=== PATIENT | male | born 1985 | race Caucasian/White ===

== ENCOUNTER 2016-12-05 23:20 | Emergency (ER) | payer OTHER ==
--- NOTE | 2016-12-05 23:23 | PDOC ---
History of Present Illness - General Chief Complaint: Pain, Acute Stated Complaint: SWELLING PAIN TO LEFT FOOT Time Seen by Provider: 12/05/16 23:22 History Source: Patient Exam Limitations: No Limitations - History of Present Illness Initial Comments: 12/05/16 23:39 This is a 31-year-old male who comes in complaining of some pain and swelling to the base of the second third and fourth toes of his left foot. Patient said that the symptoms began 2 days ago at the base of the second toe and then spread to this third and fourth toe. Patient denies any fevers or chills. Patient said he took some Motrin with improvement of the symptoms. Patient said they toes are not painful unless he tries to walk on them. Patient denies any trauma to the area. Patient says he has not had similar symptoms in the past. Patient denies any fevers or chills. PAST MEDICAL HISTORY: no significant history PAST SURGICAL HISTORY: no significant history FAMILY HISTORY: no pertinant history SOCIAL HISTORY: Pt lives with family and is employed. MEDICATIONS: reviewed ALLERGIES: As per nursing notes Review of Systems General: No fevers or chills, no weakness, no weight loss HEENT: No change in vision. No sore throat,. No ear pain CardioVascular: No chest pain or shortness of breath Respiratory:No cough, or wheezing. Gastrointestinal: no nausea, vomitting, diarrhea or constipation, No rectal bleeding Genitourinary: No dysuria, hematuria, or frequency Musculoskeletal: Pain and swelling at the base of the second third and fourth toes of the left foot Neurologic: No headache, vertigo, dizziness or loss of consciousness Psychiatric: nor depression Skin: No rashes or easy bruising Endocrine: no increased thirst or abnormal weight change Allergic: no skin or latex allergy All other systems reviewed and normal GENERAL: The patient is awake, alert, and fully oriented, in no acute distress. HEAD: Normal with no signs of trauma. EYES: Pupils equal, round and reactive to light, extraocular movements intact, sclera anicteric, conjunctiva clear. EXTREMITIES: There is some mild swelling to the second third and fourth toes proximal phalanx with minimal increase in erythema and no increase in warmth. There is some mild discomfort on palpation. Neurovascular is intact. NEUROLOGICAL: Normal speech, normal gait. PSYCH: Normal mood, normal affect. SKIN: Warm, Dry, normal turgor, no rashes or lesions noted. 12/06/16 00:17 Assessment and plan: This is a 31-year-old male comes in complaining of pain in the base of his second third and fourth toes. Patient was given Indocin for presumptive gout as his uric acid level was moderately elevated. Patient was given orthopedic follow-up and discharged home with prescription for additional Indocin. Past History - Past Medical History Allergies/Adverse Reactions: Allergies Allergy/AdvReac Type Severity Reaction Status Date / Time No Known Allergies Allergy Verified 12/05/16 23:29 Home Medications: Ambulatory Orders Bupropion HCl [Wellbutrin] 400 mg PO ONCE 05/08/12 Clonazepam [Klonopin] 3 mg PO ONCE 05/08/12 Escitalopram Oxalate [Lexapro] 60 mg PO DAILY 05/08/12 Propranolol HCl 100 mg PO DAILY 05/08/12 Quetiapine Fumarate [Seroquel] 125 mg PO HS 05/08/12 Acetaminophen W/ Codeine #3 [Tylenol # 3 -] 1 tab PO Q6H PRN #10 tablet Naproxen [Naprosyn -] 500 mg PO BID PRN #14 tablet 03/14/15 Indomethacin [Indocin -] 50 mg PO TID #21 capsule 12/06/16 - Surgical History Abdominal Surgery: Yes - Immunization History Immunization Up to Date: Yes - Suicide/Smoking/Psychosocial Hx Smoking Status: No Smoking History: Never smoked Number of Cigarettes Smoked Daily: 0 Hx Alcohol Use: No Drug/Substance Use Hx: No Substance Use Type: None ED Treatment Course - LABORATORY CBC & Chemistry Diagram: 12/05/16 23:40 *DC/Admit/Observation/Transfer Diagnosis at time of Disposition: Gout attack Qualifiers: Gout site: toe Gout etiology: unspecified cause Laterality: left Qualified Code (s): M10.9 - Gout, unspecified - Discharge Dispostion Disposition: HOME Condition at time of disposition: Stable Admit: No - Prescriptions Prescriptions: Indomethacin [Indocin -] 50 mg PO TID #21 capsule - Patient Instructions Printed Discharge Instructions: DI for Gout Additional Instructions: Take indomethacin one tablet 3 times a day for the next week. Follow-up with an orthopedist if you need an orthopedist call Dr. Aguila at [phone] for an appointment. Return to the emergency department immediately with ANY new, persistent or worsening symptoms. Continue any medications as previously prescribed by your physician. You should follow up with an orthopedic doctor as soon as possible regarding today's emergency department visit. . Please make sure your doctor reviews the results of your emergency evaluation. Thank you for coming to the Emergency Department today for your care. It was a pleasure to see you today. Please note that your evaluation is INCOMPLETE until you follow-up with your doctor.
[2016-12-05 23:34] VITALS: BP 120/83; PULSE 86; TEMP 98.5; BMI 37.6
[2016-12-05 23:48] LABS: BASOPHIL 1.1 % (0-2.0); EOSINOPHIL 7.4 % (0-4.5); MCH 29.4 pg (25.7-33.7); MCHC 34.3 g/dl (32.0-35.9); MEAN CELL VOLUME 85.7 fl (80-96); MEAN PLT VOLUME 10.2 fl (7.5-11.1); NEUTROPHILS 63.4 % (42.8-82.8); PLATELET COUNT 171 K/MM3 (134-434); WHITE BLOOD COUNT 9.3 K/mm3 (4.0-10.8)
[2016-12-06] MEDS ORDERED: INDOMETHACIN 50 MG CAPSULE PO STA (00:09)
[2016-12-06] MEDS ORDERED: INDOMETHACIN 25 MG CAPSULE ONE (00:12)
== END 2016-12-06 00:19 | disposition home or self-care (01) ==
LOC: FER 23:20
DX: M10.9 Gout, unspecified (principal)
CPT/HCPCS: 36415; 84550; 85025; 99281-25

== ENCOUNTER 2017-02-25 13:35 | Emergency (ER) | payer OTHER ==
[2017-02-25 14:04] VITALS: BP 134/87; PULSE 78; TEMP 97; BMI 37.6
[2017-02-25] MEDS ORDERED: METHOCARBAMOL 500 MG TABLET PO ONE (14:04)
--- NOTE | 2017-02-25 14:04 | PDOC ---
History of Present Illness <Tania Miner - Last Filed: 02/25/17 14:02> - General History Source: Patient Exam Limitations: No Limitations - History of Present Illness Initial Comments: 02/25/17 14:06 The patient is a 32 year old male, with no significant past medical history who presents to the emergency department with neck pain for about 2 days. The patient reports injuring his neck about 2 days ago while having intercourse, he reports re-injuring his neck in a similar way yesterday. He notes since the injury having pain with any movement of his neck, and reports having a decrease in the ROM of his neck. He also reports having a headache associated with his neck pain. He reports taking motrin with no significant alleviation of his pain. He denies any recent fevers, chills, headache or dizziness. He denies any recent nausea, vomit, diarrhea or constipation. Allergies: NKA Past surgical history: None reported. Social History: Nonsmoker. Denies EtOH use and recreational drug use. <Bassam Covington - Last Filed: 02/25/17 21:00> - General Chief Complaint: Pain Stated Complaint: NECK PAIN 2 DAYS Time Seen by Provider: 02/25/17 13:51 Past History - Surgical History Abdominal Surgery: Yes - Immunization History Immunization Up to Date: Yes - Suicide/Smoking/Psychosocial Hx Smoking Status: No Smoking History: Never smoked Have you smoked in the past 12 months: No Number of Cigarettes Smoked Daily: 0 Hx Alcohol Use: No Drug/Substance Use Hx: No Substance Use Type: None <Tania Miner - Last Filed: 02/25/17 14:02> <Bassam Covington - Last Filed: 02/25/17 21:00> - Past Medical History Allergies/Adverse Reactions: Allergies Allergy/AdvReac Type Severity Reaction Status Date / Time No Known Allergies Allergy Verified 02/25/17 13:38 Home Medications: Ambulatory Orders Clonazepam [Klonopin] 3 mg PO ONCE 05/08/12 Escitalopram Oxalate [Lexapro] 60 mg PO DAILY 05/08/12 Indomethacin [Indocin -] 50 mg PO TID #21 capsule 12/06/16 Ibuprofen [Motrin -] 600 mg PO TID PRN #21 tablet 02/25/17 Methocarbamol [Robaxin -] 500 mg PO BID PRN #14 tablet 02/25/17 Review of Systems - Review of Systems Able to Perform ROS?: Yes Comments:: 02/25/17 14:06 GENERAL/CONSTITUTIONAL: No fever or chills. No weakness. HEAD, EYES, EARS, NOSE AND THROAT: No change in vision. No ear pain or discharge. No sore throat. CARDIOVASCULAR: No chest pain or shortness of breath. RESPIRATORY: No cough, wheezing, or hemoptysis. GASTROINTESTINAL: No nausea, vomiting, diarrhea or constipation. GENITOURINARY: No dysuria, frequency, or change in urination. MUSCULOSKELETAL: No joint or muscle swelling or pain. +neck pain No back pain. SKIN: No rash NEUROLOGIC: +headache No vertigo, loss of consciousness, or change in strength/ sensation. ENDOCRINE: No increased thirst. No abnormal weight change. HEMATOLOGIC/LYMPHATIC: No anemia, easy bleeding, or history of blood clots. ALLERGIC/IMMUNOLOGIC: No hives or skin allergy. <Bassam Covington - Last Filed: 02/25/17 21:00> *Physical Exam - Physical Exam Comments: GENERAL: Awake, alert, and fully oriented, in no acute distress HEAD: No signs of trauma EYES: PERRLA, EOMI, sclera anicteric, conjunctiva clear ENT: Auricles normal inspection, hearing grossly normal, nares patent, oropharynx clear without exudates. Moist mucosa NECK: +R trapezius spasm with dec ROM to R neck. Supple, no lymphadenopathy, JVD , or masses LUNGS: Breath sounds equal, clear to auscultation bilaterally. No wheezes, and no crackles HEART: Regular rate and rhythm, normal S1 and S2, no murmurs, rubs or gallops ABDOMEN: Soft, nontender, normoactive bowel sounds. No guarding, no rebound. No masses EXTREMITIES: Normal range of motion, no edema. No clubbing or cyanosis. No cords, erythema, or tenderness NEUROLOGICAL: Cranial nerves II through XII grossly intact. Normal speech, normal gait SKIN: Warm, Dry, normal turgor, no rashes or lesions noted. <Tania Miner - Last Filed: 02/25/17 14:02> - Vital Signs Last Vital Signs Temp Pulse Resp BP Pulse Ox 97 F L 78 20 134/87 97 02/25/17 13:36 02/25/17 13:36 02/25/17 13:36 02/25/17 13:36 02/25/17 13:36 <Bassam Covington - Last Filed: 02/25/17 21:00> *DC/Admit/Observation/Transfer - Discharge Dispostion Admit: No <Tania Miner - Last Filed: 02/25/17 14:02> - Attestations Scribe Attestion: 02/25/17 14:07 Documentation prepared by Bassam Covington, acting as medical physicist for Tania Miner MD. <Bassam Covington - Last Filed: 02/25/17 21:00> Diagnosis at time of Disposition: Trapezius muscle spasm - Discharge Dispostion Disposition: HOME Condition at time of disposition: Stable - Prescriptions Prescriptions: Ibuprofen [Motrin -] 600 mg PO TID PRN #21 tablet PRN Reason: Pain Methocarbamol [Robaxin -] 500 mg PO BID PRN #14 tablet PRN Reason: Muscle Spasms - Patient Instructions Printed Discharge Instructions: DI for Cervical Muscle Strain
[2017-02-25] MEDS ORDERED: METHOCARBAMOL 500 MG TABLET ONE (14:09)
== END 2017-02-25 14:13 | disposition home or self-care (01) ==
LOC: FER 13:35
DX: M62.838 Other muscle spasm (principal)
CPT/HCPCS: 99281-25

== ENCOUNTER 2017-04-28 12:23 | Emergency (ER) | payer OTHER ==
[2017-04-28 12:46] VITALS: BP 128/82; PULSE 83; TEMP 98.7; BMI 37.6
--- NOTE | 2017-04-28 13:23 | PDOC ---
History of Present Illness - General Chief Complaint: Sore Throat Stated Complaint: SORE THROAT Time Seen by Provider: 04/28/17 13:23 - History of Present Illness Initial Comments: 04/28/17 13:48 32-year-old male with a history of OCD and restless leg syndrome presents the emergency department with 2 days of sore throat. The patient reports 5 days ago that he had cough, nasal congestion, and body aches which improved and he felt better 3 later.Two days ago, developed a sore throat that was worse this morning and he was concerned that he had strep throat. 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 Denies any fevers, chills. Reports a mild cough. Took ibuprofen for pain last night which helps. Denies any headache, chest pain , shortness of breath, difficulty swallowing, abdominal pain, rashes, stiff neck , lower extremity edema. Past History - Past Medical History Allergies/Adverse Reactions: Allergies Allergy/AdvReac Type Severity Reaction Status Date / Time No Known Allergies Allergy Verified 04/28/17 12:33 Home Medications: Ambulatory Orders Escitalopram Oxalate [Lexapro] 60 mg PO DAILY 05/08/12 clonazePAM [Klonopin] 4 mg PO HS 05/08/12 Gabapentin [Neurontin -] 200 mg PO HS 04/28/17 COPD: No Psychiatric Problems: Yes (OCD) - Surgical History Abdominal Surgery: Yes - Immunization History Immunization Up to Date: Yes - Suicide/Smoking/Psychosocial Hx Smoking Status: No Smoking History: Never smoked Have you smoked in the past 12 months: No Number of Cigarettes Smoked Daily: 0 Information on smoking cessation initiated: No Hx Alcohol Use: No Drug/Substance Use Hx: No Substance Use Type: None Review of Systems - Review of Systems Comments:: 04/28/17 13:50 GENERAL/CONSTITUTIONAL: No fever or chills. No weakness. HEAD, EYES, EARS, NOSE AND THROAT: No change in vision. No ear pain or discharge. +sore throat. GASTROINTESTINAL: No nausea, vomiting, diarrhea or constipation. GENITOURINARY: No dysuria, frequency, or change in urination. CARDIOVASCULAR: No chest pain or shortness of breath. RESPIRATORY: +cough, no wheezing, or hemoptysis. MUSCULOSKELETAL: No joint or muscle swelling or pain. No neck or back pain. SKIN: No rash NEUROLOGIC: No headache, vertigo, loss of consciousness, or change in strength/ sensation. ENDOCRINE: No increased thirst. No abnormal weight change. HEMATOLOGIC/LYMPHATIC: No anemia, easy bleeding, or history of blood clots. ALLERGIC/IMMUNOLOGIC: No hives or skin allergy. *Physical Exam - Vital Signs Last Vital Signs Temp Pulse Resp BP Pulse Ox 98.7 F 83 20 128/82 95 04/28/17 12:25 04/28/17 12:25 04/28/17 12:25 04/28/17 12:25 04/28/17 12:25 - Physical Exam Comments: 04/28/17 13:51 GENERAL: Awake, alert, and fully oriented, in no acute distress HEAD: No signs of trauma EYES: PERRLA, EOMI, sclera anicteric, conjunctiva clear ENT: Auricles normal inspection, hearing grossly normal, nares patent, mild oropharyngeal erythema but no exudates/petechie. Moist mucosa NECK: Normal ROM, supple, no lymphadenopathy, JVD, or masses LUNGS: Breath sounds equal, clear to auscultation bilaterally. No wheezes, and no crackles HEART: Regular rate and rhythm, normal S1 and S2, no murmurs, rubs or gallops ABDOMEN: Soft, nontender, normoactive bowel sounds. No guarding, no rebound. No masses EXTREMITIES: Normal range of motion, no edema. No clubbing or cyanosis. No cords, erythema, or tenderness NEUROLOGICAL: Normal speech, cranial nerves intact, negative pronator drift, 5/ 5 strength in all 4 extremities, normal sensation to light touch in all 4 extremities, normal cerebellar exam, normal gait, normal reflexes and tone SKIN: Warm, Dry, normal turgor, no rashes or lesions noted. Medical Decision Making - Medical Decision Making 04/28/17 13:12 32-year-old male presents with 2 days of sore throat and cough. Vitals within normal limits. Exam with oropharyngeal erythema. Since patient is coughing and has no fever, unlikely strep. We will do a rapid strep test, if negative likely has a viral syndrome. Pt given motrin for pain. Will reassess 04/28/17 14:46 Rapid strep negative, likely viral pharyngitis. Pt feels better with motrin, requests DC. I discussed the physical exam findings, ancillary test results and final diagnoses with the patient. I answered all of the patient's questions. The patient was satisfied with the care received and felt comfortable with the discharge plan and treatment plan. The patient will call their primary care physician within 24 hours to arrange follow-up and will return to the Emergency Department with any new, persistent or worsening symptoms. *DC/Admit/Observation/Transfer Diagnosis at time of Disposition: Sore throat - Discharge Dispostion Disposition: HOME Condition at time of disposition: Good Admit: No - Referrals Referrals: Kylie Arias MD [Primary Care Provider] - - Patient Instructions Printed Discharge Instructions: DI for Viral Pharyngitis Additional Instructions: Follow-up with your primary care doctor within 1 week. Take ibuprofen every 6 hours as needed for pain. Stay hydrated and drink plenty of fluids. Return to the emergency department if you have any new, worsening or concerning symptoms. - Post Discharge Activity - Attestations Physician Attestion: 04/28/17 13:54 I, Dr. Peggy Hubbard MD, attest that this document has been prepared under my direction and personally reviewed by me in its entirety. I further attest, that it accurately reflects all work, treatment, procedures and medical decision -making performed by me.
[2017-04-28] MEDS ORDERED: IBUPROFEN 600 MG TABLET (FP) PO ONE ×2 (13:50→13:56)
== END 2017-04-28 13:59 | disposition home or self-care (01) ==
LOC: FER 12:23
DX: J02.9 Acute pharyngitis, unspecified (principal); F42.9 Obsessive-compulsive disorder, unspecified
CPT/HCPCS: 87070; 87430; 99281-25

== ENCOUNTER 2017-07-11 11:20 | Emergency (ER) | payer OTHER ==
[2017-07-11] MEDS ORDERED: NAPROXEN 500 MG TABLET (FP) PO ONE (11:34)
[2017-07-11 11:35] VITALS: BP 128/88; PULSE 84; TEMP 98.5; BMI 37.6
[2017-07-11] MEDS ORDERED: NAPROXEN 500 MG TABLET (FP) ONE (11:41)
--- NOTE | 2017-07-11 11:42 | PDOC ---
History of Present Illness - General Chief Complaint: Pain Stated Complaint: RIGHT FOOT AND ANKLE PAIN Time Seen by Provider: 07/11/17 11:24 - History of Present Illness Initial Comments: 07/11/17 11:37 32 M with h/o gout, OCD presents to ED with several days of R ankle pain. Pt states that he may have twisted it last week but didn't notice any significant pain at the time. This week, he has been walking on it and noticed gradually increasing pain in the front of his ankle. He denies any falls. Denies any new injuries. Pt states that he initially thought it was gout and started taking his indomethacin. However, it did not help. Pt states he typically gets gout in his L big toe and has never gotten it in his ankle. Pt denies any significant swelling or redness around the joint. Denies F/C. He is still ambulatory on the foot but states it is painful when walking. Past History - Past Medical History Allergies/Adverse Reactions: Allergies Allergy/AdvReac Type Severity Reaction Status Date / Time No Known Allergies Allergy Verified 07/11/17 11:22 Home Medications: Ambulatory Orders Escitalopram Oxalate [Lexapro] 60 mg PO DAILY 05/08/12 clonazePAM [Klonopin] 4 mg PO HS 05/08/12 Gabapentin [Neurontin -] 200 mg PO HS 04/28/17 Ibuprofen [Advil -] 600 mg PO PRN 07/11/17 Indomethacin 100 mg PO BID 07/11/17 Naproxen 500 mg PO BID PRN #14 tablet 07/11/17 COPD: No Psychiatric Problems: Yes (OCD ANXIETY) Other medical history: GOUT, RESTLESS LEG SYNDROME - Surgical History Abdominal Surgery: Yes - Immunization History Immunization Up to Date: Yes - Suicide/Smoking/Psychosocial Hx Smoking Status: No Smoking History: Never smoked Have you smoked in the past 12 months: No Number of Cigarettes Smoked Daily: 0 Information on smoking cessation initiated: No Hx Alcohol Use: No Drug/Substance Use Hx: No Substance Use Type: None Review of Systems - Review of Systems Comments:: 07/11/17 11:40 "GENERAL/CONSTITUTIONAL: No fever or chills. No weakness. HEAD, EYES, EARS, NOSE AND THROAT: No change in vision. No ear pain or discharge. No sore throat. CARDIOVASCULAR: No chest pain or shortness of breath. RESPIRATORY: No cough, wheezing, or hemoptysis. GASTROINTESTINAL: No nausea, vomiting, diarrhea or constipation. GENITOURINARY: No dysuria, frequency, or change in urination. MUSCULOSKELETAL: + R ankle pain. No neck or back pain. SKIN: No rash NEUROLOGIC: No headache, vertigo, loss of consciousness, or change in strength/ sensation. ENDOCRINE: No increased thirst. No abnormal weight change. HEMATOLOGIC/LYMPHATIC: No anemia, easy bleeding, or history of blood clots. ALLERGIC/IMMUNOLOGIC: No hives or skin allergy. " *Physical Exam - Vital Signs Last Vital Signs Temp Pulse Resp BP Pulse Ox 98.5 F 84 16 128/88 97 07/11/17 11:21 07/11/17 11:21 07/11/17 11:21 07/11/17 11:21 07/11/17 11:21 - Physical Exam Comments: 07/11/17 11:41 "GENERAL: Awake, alert, and fully oriented, in no acute distress. HEAD: No signs of trauma EYES: PERRLA, EOMI, sclera anicteric, conjunctiva clear ENT: Auricles normal inspection, hearing grossly normal, nares patent, oropharynx clear without exudates. Moist mucosa NECK: Nontender, no stepoffs, Normal ROM, supple, no lymphadenopathy, JVD, or masses LUNGS: Breath sounds equal, clear to auscultation bilaterally. No wheezes, and no crackles HEART: Regular rate and rhythm, normal S1 and S2, no murmurs, rubs or gallops ABDOMEN: Soft, nontender, normoactive bowel sounds. No guarding, no rebound. No masses EXTREMITIES: + mild tenderness to anterior joint of R ankle, Normal range of motion, no edema. No clubbing or cyanosis. No cords, erythema, or tenderness NEUROLOGICAL: Cranial nerves II through XII intact. 5/5 strength and sensation in all extremities, Normal speech, normal gait, normal cerebellar function SKIN: Warm, Dry, normal turgor, no rashes or lesions noted. " ED Treatment Course - RADIOLOGY Radiology Studies Ordered: Category Date Time Status ANKLE-RIGHT [RAD] Stat Radiology 07/11/17 11:34 Ordered Medical Decision Making - Medical Decision Making 07/11/17 11:41 32 M with R ankle pain. No evidence of joint effusion on exam. Pt with full ROM , making gout or septic arthritis unlikely. Pain is likely 2/2 tendinitis. No bony tenderness appreciated on exam. No evidence of DVT, no risk factors for DVT. - X ray R ankle - Naproxen 07/11/17 13:20 X ray negative Pt placed in BENNIE bandage. Pt is well appearing, with normal vitals. Clinically stable for DC at this time. I discussed the physical exam findings, ancillary test results and final diagnoses with the patient. I answered all of the patient's questions. The patient was satisfied with the care received and felt comfortable with the discharge plan and treatment plan. The patient agrees to follow up with the primary care physician within 24-72 hours. *DC/Admit/Observation/Transfer Diagnosis at time of Disposition: Ankle injury - Discharge Dispostion Disposition: HOME Condition at time of disposition: Stable - Prescriptions Prescriptions: Naproxen 500 mg PO BID PRN #14 tablet PRN Reason: Pain - Referrals Referrals: Be Barrios MD [Staff Physician] - - Patient Instructions Printed Discharge Instructions: DI for Ankle Pain Additional Instructions: Keep your ankle elevated and rest it for the next 2-3 days. Minimize walking or weight bearing, as this may worsen your pain. Take ibuprofen or naproxen as needed for pain. Do not take both together, and do not take indomethacin, as this can cause kidney injury. If you experience worsening swelling, redness, fevers, inability to bear weight , or any other concerning symptoms, return to the ER immediately. Otherwise, follow up with an orthopedic surgeon within 1 week for further evaluation of your ankle pain. - Post Discharge Activity - Attestations Physician Attestion: 07/11/17 11:55 I, Dr. Be Dietz MD, attest that this document has been prepared under my direction and personally reviewed by me in its entirety. I further attest, that it accurately reflects all work, treatment, procedures and medical decision -making performed by me.
== END 2017-07-11 13:35 | disposition home or self-care (01) ==
LOC: FER 11:20
DX: S99.911A Unspecified injury of right ankle, initial encounter (principal); X58.XXXA Exposure to other specified factors, initial encounter; Y93.89 Activity, other specified; Y92.9 Unspecified place or not applicable; F41.9 Anxiety disorder, unspecified; F42.9 Obsessive-compulsive disorder, unspecified
CPT/HCPCS: 73610-TC-RT-FY; 99282-25

== ENCOUNTER 2017-07-14 12:05 | Emergency (ER) | payer OTHER ==
[2017-07-14 12:12] VITALS: BP 144/94; PULSE 100; TEMP 98.1; BMI 37.6
--- NOTE | 2017-07-14 12:19 | PDOC ---
History of Present Illness - General Chief Complaint: Pain Stated Complaint: LEFT FOOT PAIN Time Seen by Provider: 07/14/17 12:12 History Source: Patient Exam Limitations: No Limitations - History of Present Illness Initial Comments: 32 yo M history OCD, gout presents with B/L foot pain. He was evaluated in the ED for R ankle pain 3 days ago, was prescribed naproxen and instructed to return if the symptoms persisted or worsened. He states that now the right sided pain has migrated to the top of his foot and into his arch. In addition, since he has been using crutches, he has developed pain to the left foot. This pain is also to the top of the foot, but it is more lateral. He denies fever, chills, direct trauma. No redness, no skin rash. Denies weakness, numbness. Past History - Past Medical History Allergies/Adverse Reactions: Allergies Allergy/AdvReac Type Severity Reaction Status Date / Time No Known Allergies Allergy Verified 07/14/17 12:07 Home Medications: Ambulatory Orders Escitalopram Oxalate [Lexapro] 60 mg PO DAILY 05/08/12 clonazePAM [Klonopin] 4 mg PO HS 05/08/12 Gabapentin [Neurontin -] 200 mg PO HS 04/28/17 Ibuprofen [Advil -] 600 mg PO PRN 07/11/17 Indomethacin 100 mg PO BID 07/11/17 Naproxen 500 mg PO BID PRN #14 tablet 07/11/17 Methylprednisolone [Medrol Dose Yinka] 4 mg PO ASDIR #21 tablet 07/14/17 Oxycodone HCl/Acetaminophen [Percocet 5-325 mg Tablet] 1 tab PO Q6H PRN #12 tablet MDD 4 tabs 07/14/17 COPD: No Psychiatric Problems: Yes (OCD) - Surgical History Abdominal Surgery: Yes - Immunization History Immunization Up to Date: Yes - Suicide/Smoking/Psychosocial Hx Smoking Status: No Smoking History: Never smoked Have you smoked in the past 12 months: No Number of Cigarettes Smoked Daily: 0 Hx Alcohol Use: No Drug/Substance Use Hx: No Substance Use Type: None Review of Systems - Review of Systems Able to Perform ROS?: Yes Comments:: GENERAL/CONSTITUTIONAL: No fever or chills. No weakness. HEAD, EYES, EARS, NOSE AND THROAT: No change in vision. No ear pain or discharge. No sore throat. CARDIOVASCULAR: No chest pain or shortness of breath. RESPIRATORY: No cough, wheezing, or hemoptysis. GASTROINTESTINAL: No nausea, vomiting, diarrhea or constipation. GENITOURINARY: No dysuria, frequency, or change in urination. MUSCULOSKELETAL: No neck or back pain. +B/L foot pain. SKIN: No rash NEUROLOGIC: No headache, vertigo, loss of consciousness, or change in strength/ sensation. ENDOCRINE: No increased thirst. No abnormal weight change. HEMATOLOGIC/LYMPHATIC: No anemia, easy bleeding, or history of blood clots. ALLERGIC/IMMUNOLOGIC: No hives or skin allergy. *Physical Exam - Vital Signs Last Vital Signs Temp Pulse Resp BP Pulse Ox 98.1 F 100 H 18 144/94 98 07/14/17 12:05 07/14/17 12:05 07/14/17 12:05 07/14/17 12:05 07/14/17 12:05 - Physical Exam Comments: GENERAL: Awake, alert, and fully oriented, in no acute distress HEAD: No signs of trauma EYES: PERRLA, EOMI, sclera anicteric, conjunctiva clear ENT: Auricles normal inspection, hearing grossly normal, nares patent, oropharynx clear without exudates. Moist mucosa NECK: Normal ROM, supple, no lymphadenopathy, JVD, or masses LUNGS: Breath sounds equal, clear to auscultation bilaterally. No wheezes, and no crackles HEART: Regular rate and rhythm, normal S1 and S2, no murmurs, rubs or gallops ABDOMEN: Soft, nontender, normoactive bowel sounds. No guarding, no rebound. No masses EXTREMITIES: Normal range of motion, no edema. No clubbing or cyanosis. No cords, erythema, or tenderness NEUROLOGICAL: Cranial nerves II through XII grossly intact. Normal speech. + Antalgic gait. Ambulates with crutches. Sensation and motor intact. SKIN: Warm, Dry, normal turgor, no rashes or lesions noted. Medical Decision Making - Medical Decision Making 07/14/17 13:35 XR results d/w patient. Prescribed percocet, as NSAIDs were not sufficiently treating the pain. Also gave rx for medrol dose yinka, as this is likely inflammatory. There are no signs of septic joint. *DC/Admit/Observation/Transfer Diagnosis at time of Disposition: Foot pain, bilateral - Discharge Dispostion Disposition: HOME Condition at time of disposition: Stable Decision to Admit order: No - Prescriptions Prescriptions: Methylprednisolone [Medrol Dose Yinka] 4 mg PO ASDIR #21 tablet Oxycodone HCl/Acetaminophen [Percocet 5-325 mg Tablet] 1 tab PO Q6H PRN #12 tablet MDD 4 tabs PRN Reason: Severe Pain - Referrals Referrals: Kylie Arias MD [Primary Care Provider] - - Patient Instructions Printed Discharge Instructions: DI for Foot Pain - Post Discharge Activity Forms/Work/School Notes: Back to Work
== END 2017-07-14 13:35 | disposition home or self-care (01) ==
LOC: FER 12:05
DX: M79.671 Pain in right foot (principal); M79.672 Pain in left foot; F42.9 Obsessive-compulsive disorder, unspecified
CPT/HCPCS: 73630-TC-LT; 73630-TC-RT-FY; 99282-25

== ENCOUNTER 2017-07-22 13:39 | Emergency (ER) | payer OTHER ==
--- NOTE | 2017-07-22 13:44 | PDOC ---
History of Present Illness - General Chief Complaint: Pain Stated Complaint: FOOT PAIN Time Seen by Provider: 07/22/17 13:44 - History of Present Illness Initial Comments: 07/22/17 14:43 PT presents to the ED complaining of bilateral foot pain. Pt has been seen in the ED twice for the same complaint, most recently discharged with a medrol dose pack, which temporarily resolved his pain. Presents today because the pain recurred. Denies fever, nausea or vomiting. Pain is localized to the dorsum of his feet, but also travels up to his mid calf. Patient has a history of gout, but states that this pain is different than his gout because his gout is localized to a point on the dorsum of his foot. He is able to ambulate. Past History - Past Medical History Allergies/Adverse Reactions: Allergies Allergy/AdvReac Type Severity Reaction Status Date / Time No Known Allergies Allergy Verified 07/22/17 13:46 Home Medications: Ambulatory Orders Escitalopram Oxalate [Lexapro] 60 mg PO HS 05/08/12 clonazePAM [Klonopin] 4 mg PO HS 05/08/12 Gabapentin [Neurontin -] 200 mg PO HS 04/28/17 Ibuprofen [Advil -] 600 mg PO PRN 07/11/17 Indomethacin 100 mg PO BID PRN 07/11/17 Oxycodone HCl/Acetaminophen [Percocet 5-325 mg Tablet] 1 tab PO Q6H PRN #12 tablet MDD 4 tabs 07/14/17 COPD: No Psychiatric Problems: Yes (OCD) - Surgical History Abdominal Surgery: Yes - Immunization History Immunization Up to Date: Yes - Suicide/Smoking/Psychosocial Hx Smoking Status: No Smoking History: Never smoked Have you smoked in the past 12 months: No Number of Cigarettes Smoked Daily: 0 Hx Alcohol Use: No Drug/Substance Use Hx: No Substance Use Type: None Review of Systems - Review of Systems Able to Perform ROS?: Yes Is the patient limited Sinhala proficient: No Constitutional: No: Symptoms Reported, See HPI, Chills, Diaphoresis, Fever, Loss of Appetite, Malaise, Night Sweats, Weakness, Weight Stable, Unintentional Wgt. Loss, Unexplained wgt Loss, Other Musculoskeletal: Yes: Joint Pain. No: Symptoms Reported, See HPI, Back Pain, Gout, Joint Swelling, Muscle Pain, Muscle Weakness, Neck Pain, Joint Stiffness, Other Integumentary: No: Symptoms Reported, See HPI, Bruising, Change in Color, Change in Hair/Nails, Dryness, Erythema, Flushing, Lesions, Lumps, Pallor, Pruritus, Rash, Sweating, Other *Physical Exam - Physical Exam General Appearance: Yes: Nourished, Appropriately Dressed (Bilateral feet with no redness, swelling or tenderness. Neurovascularly intact. No deformity. Full ROm at the ankle) Medical Decision Making - Medical Decision Making 07/22/17 14:04 Pt presents to the ED complaining of recurrence of bilateral foot pain. Patient presented to the ED a week ago with bilateral foot pain. Treated with indomethecin without relief, then returned and completed a course of steroids. Pain was gone while patient was on steroids, and eliezer presents today becuase his pain is recurring. Exam is unremarkable. Will discharge home with instructions to restart indomethacin for possible gout, and to continue percoset for breath through pain. Eliezer instructed to follow up with his PMD and with orthopedics. *DC/Admit/Observation/Transfer Diagnosis at time of Disposition: Foot pain, bilateral - Discharge Dispostion Disposition: HOME Condition at time of disposition: Good Decision to Admit order: No - Referrals Referrals: Kylie Arias MD [Primary Care Provider] - - Patient Instructions Printed Discharge Instructions: DI for Foot Pain Additional Instructions: your pain may be secondary to gout, or to other inflammation in your foot. Continue taking the indomethacin twice daily as prescribed, and use the percoset for breaththrough pain. Return to the ED for fever, nausea or vomiting , red hot tender swollen foot, ankle or leg. Call your primary care doctor for follow up tomorrow. - Post Discharge Activity
[2017-07-22 13:51] VITALS: BP 124/90; PULSE 79; TEMP 98.3; BMI 37.6
[2017-07-22] MEDS ORDERED: KETOROLAC TROMETHAMINE 60 MG/2 ML VIAL IM ONE (14:04)
[2017-07-22] MEDS ORDERED: KETOROLAC TROMETHAMINE 60 MG/2 ML VIAL ONE (14:07)
== END 2017-07-22 14:12 | disposition home or self-care (01) ==
LOC: FER 13:39
PROC: 3E0233Z Introduction of Anti-inflammatory into Muscle, Percutaneous Approach (ICD-10-PCS; principal; 2017-07-22)
DX: M79.672 Pain in left foot (principal); M79.671 Pain in right foot
CPT/HCPCS: 99282-25

== ENCOUNTER 2019-02-02 15:16 | Emergency (ER) | payer OTHER ==
[2019-02-02] MEDS ORDERED: FLUORESCEIN NA 1 EA STRIP OU ONE (15:30)
[2019-02-02] MEDS ORDERED: TETRACAINE 0.5% HCL 0.6ML DROPPER.BOTTLE OS ONE (15:30)
--- NOTE | 2019-02-02 15:34 | PDOC ---
History of Present Illness - General Chief Complaint: Eye Problem Stated Complaint: EYE IRRITATION Time Seen by Provider: 02/02/19 15:30 Past History - Past Medical History Allergies/Adverse Reactions: Allergies Allergy/AdvReac Type Severity Reaction Status Date / Time No Known Allergies Allergy Verified 02/02/19 15:29 Home Medications: Ambulatory Orders Escitalopram Oxalate [Lexapro] 60 mg PO HS 05/08/12 Gabapentin [Neurontin -] 200 mg PO HS 04/28/17 Allopurinol [Zyloprim -] 100 mg PO BID 02/02/19 Clonazepam [Klonopin] 6 mg PO HS 02/02/19 Omeprazole 20 mg PO HS 02/02/19 COPD: No Psychiatric Problems: Yes (OCD) - Surgical History Abdominal Surgery: Yes - Immunization History Immunization Up to Date: Yes - Psycho Social/Smoking Cessation Hx Smoking Status: No Smoking History: Never smoked Have you smoked in the past 12 months: No Number of Cigarettes Smoked Daily: 0 Hx Alcohol Use: No Drug/Substance Use Hx: No Substance Use Type: None Discharge - Discharge Information Condition: Good - Follow up/Referral Referrals: Kylie Arias MD [Primary Care Provider] - - Patient Discharge Instructions - Post Discharge Activity
[2019-02-02 15:37] VITALS: BP 140/95; PULSE 102; TEMP 98.1; BMI 39.3
[2019-02-02] MEDS ORDERED: TETRACAINE 0.5% OPHTH SOLN 2 ML BOTTLE ONE (15:44)
[2019-02-02] MEDS ORDERED: FLUORESCEIN NA 1 EA STRIP ONE (15:44)
--- NOTE | 2019-02-02 16:00 | PDOC ---
Documentation entered by Negin Mc SCRIBE, acting as scribe for Shaji Shelton MD. Shaji Mishra MD: This documentation has been prepared by the Jesusita polanco Sammi, SCRIBE, under my direction and personally reviewed by me in its entirety. I confirm that the documentation accurately reflects all work, treatment, procedures, and medical decision making performed by me. History of Present Illness - General Chief Complaint: Eye Problem Stated Complaint: EYE IRRITATION Time Seen by Provider: 02/02/19 15:30 History Source: Patient - History of Present Illness Initial Comments: 02/02/19 15:32 The patient is a 34 year old male who presents to the ED for evaluation of discomfort to bilateral eyes (R>L) since . The patient states he was cleaning around his house and believes he may have gotten dust in his eyes. He reports itching, erythema, and discharge to bilateral eyes. The patient notes warm compresses and eye flushing have slightly alleviated his eye symptoms. 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 The patient denies all other complaints. Allergies: Dust Past History - Past Medical History Allergies/Adverse Reactions: Allergies Allergy/AdvReac Type Severity Reaction Status Date / Time No Known Allergies Allergy Verified 02/02/19 15:29 Home Medications: Ambulatory Orders Escitalopram Oxalate [Lexapro] 60 mg PO HS 05/08/12 Gabapentin [Neurontin -] 200 mg PO HS 04/28/17 Allopurinol [Zyloprim -] 100 mg PO BID 02/02/19 Clonazepam [Klonopin] 6 mg PO HS 02/02/19 Omeprazole 20 mg PO HS 02/02/19 COPD: No Psychiatric Problems: Yes (OCD) - Surgical History Abdominal Surgery: Yes - Immunization History Immunization Up to Date: Yes - Psycho Social/Smoking Cessation Hx Smoking Status: No Smoking History: Never smoked Have you smoked in the past 12 months: No Number of Cigarettes Smoked Daily: 0 Hx Alcohol Use: No Drug/Substance Use Hx: No Substance Use Type: None Review of Systems - Review of Systems Comments:: 02/02/19 15:39 GENERAL/CONSTITUTIONAL: No fever or chills. No weakness. HEAD, EYES, EARS, NOSE AND THROAT: +bilateral eye itching, erythema, & discharge. No change in vision. No ear pain or discharge. No sore throat. CARDIOVASCULAR: No chest pain or shortness of breath. RESPIRATORY: No cough, wheezing, or hemoptysis. GASTROINTESTINAL: No nausea, vomiting, diarrhea or constipation. GENITOURINARY: No dysuria, frequency, or change in urination. MUSCULOSKELETAL: No joint or muscle swelling or pain. No neck or back pain. SKIN: No rash NEUROLOGIC: No headache, vertigo, loss of consciousness, or change in strength/ sensation. ALLERGIC/IMMUNOLOGIC: No hives or skin allergy. *Physical Exam - Vital Signs Last Vital Signs Temp Pulse Resp BP Pulse Ox 98.1 F 102 H 18 140/95 98 02/02/19 15:25 02/02/19 15:25 02/02/19 15:25 02/02/19 15:25 02/02/19 15:25 - Physical Exam 02/02/19 15:59 GENERAL: Awake, alert, and fully oriented, in no acute distress HEAD: No signs of trauma EYES: +Bilateral conjunctiva mildly injected but no ciliary flush, PERRLA 4mm, Fundae benign, EOM full without diplopia, Visual chrisitan intact to confrontation , No staining noted in either eye after examination with fluorescein dye, No foreign bodies visualised ENT: +mild nasal congestion without discharge. Auricles normal inspection, hearing grossly normal, oropharynx clear without exudates. Moist mucosa NECK: Supple without nodes LUNGS: Breath sounds equal, clear to auscultation bilaterally. No wheezes, and no crackles HEART: Regular rate and rhythm, no murmurs, rubs or gallops ABDOMEN: Soft, nontender. SKIN: Warm, Dry, normal turgor, no rashes or lesions noted. Medical Decision Making - Medical Decision Making 02/02/19 16:28 Both eyes were examined with fluorescein stain. There were no abrasions or ulcerations. No foreign bodies were seen. Diagnosis is most likely mild viral conjunctivitis bilaterally, especially since the patient has a concommitant URI. Discharge - Discharge Information Problems reviewed: Yes Clinical Impression/Diagnosis: Viral conjunctivitis Condition: Stable Disposition: HOME - Admission No - Follow up/Referral Referrals: Antonio Collado MD [Staff Physician] - - Patient Discharge Instructions Patient Printed Discharge Instructions: DI for Conjunctivitis Additional Instructions: Rest the eyes, avoid bright lights. Use warm compresses every few hours. If no improvement, see eye doctor for further evaluation and treatment as directed. - Post Discharge Activity Work/Back to School Note: Back to Work
== END 2019-02-02 16:07 | disposition home or self-care (01) ==
LOC: FER 15:16
DX: B30.9 Viral conjunctivitis, unspecified (principal); F42.9 Obsessive-compulsive disorder, unspecified
CPT/HCPCS: 99281-25

== ENCOUNTER 2022-09-26 16:02 | Emergency (ER) | payer OTHER ==
[2022-09-26 16:20] VITALS: BP 119/78; PULSE 64; RESP 20; TEMP 98.2; BMI 43.4
[2022-09-26] MEDS ORDERED: ACETAMINOPHEN 500 MG TABLET (FP) PO ONE (16:32)
[2022-09-26] MEDS ORDERED: KETOROLAC TROMETHAMINE 30 MG/1 ML VIAL IM ONE (16:32)
[2022-09-26] MEDS ORDERED: LIDOCAINE 5% TOPICAL PATCH TP ONE (16:34)
[2022-09-26] MEDS ORDERED: METHOCARBAMOL 750 MG TAB PO ONE (16:34)
[2022-09-26] MEDS ORDERED: IBUPROFEN 400 MG TABLET (FP) PO ONE ×2 (17:17→17:20)
[2022-09-26] MEDS ORDERED: ACETAMINOPHEN 325 MG TABLET (FP) ONE (17:20)
[2022-09-26] MEDS ORDERED: METHOCARBAMOL 500 MG TABLET ONE (17:21)
[2022-09-26] MEDS ORDERED: LIDOCAINE 5% TOPICAL PATCH ONE (17:21)
[2022-09-26] MEDS ORDERED: diazePAM 5 MG TABLET PO ONE (18:25)
[2022-09-26] MEDS ORDERED: diazePAM 5 MG TABLET ONE (18:32)
[2022-09-26] MEDS ORDERED: predniSONE 20 MG TABLET (UD) PO ONE (18:58)
[2022-09-26] MEDS ORDERED: LIDOCAINE PATCH REMOVAL MC SCH (22:00)
== END 2022-09-26 19:51 | disposition home or self-care (01) ==
LOC: FER 16:02
DX: M54.50 Low back pain, unspecified (principal); S39.012A Strain of muscle, fascia and tendon of lower back, initial encounter; R20.2 Paresthesia of skin; X50.0XXA Overexertion from strenuous movement or load, initial encounter; Y99.0 Civilian activity done for income or pay
CPT/HCPCS: 99283-25